=== PATIENT | male | born 1935 | race Caucasian/White ===

== ENCOUNTER 2017-02-10 17:09 | Emergency (ER) | payer MEDICARE, OTHER, MEDICAID ==
[2017-02-10] MEDS ORDERED: Albuterol/Ipratropium 3.0-0.5 MG/3 ML Neb Soln NEB ONE (17:20)
[2017-02-10] MEDS ORDERED: Lidocaine 2% Jelly 5 ML Tube TOP ONE (17:21)
--- NOTE | 2017-02-10 17:30 | EDM.PDOC ---
ED HPI GENERAL MEDICAL PROBLEM - General Stated Complaint: fall,laceration Time Seen by Provider: 02/10/17 17:18 Source of Information: Reports: Patient, Family History Limitations: Reports: No Limitations - History of Present Illness INITIAL COMMENTS - FREE TEXT/NARRATIVE: This patient is a pleasant 81 year old male that presents to the ER. Patient arrives via EMS. Patient has history of dementia. Patient lives in an apartment and his daughter who is his preparer making department lives across the [place]. The daughter reports the patient was in the bathroom and she was there. She reports she thinks he might have tripped over his oxygen tubing, but she did not see this occur. Patent reports he fell in the bathroom, but does not remember how he fell. The patient reports he remembers falling and being on the floor. Daughter called 911. The patient did not have any LOC. He denies loc, nausea, vomiting, vision changes, neck pain, back pain, cp ,soa, abd pain, urinary/bowel changes. Patient reports mild headache. The daughter reports the patient over the last 1 week has increased in his drainage and mucous with cough and to the back of the throat, so she has been giving him mucinex. The patient is conversing in full and complete sentences without difficulty. Patient does not appear to be in any acute distress. Patient is acting his normal baseline. Patient wears 2L NC at home all the time. Patent is alert, oriented to self and place. He reports it is 2000 something. Patient reports mild left shoulder pain. The daughter reports he has history of chronic shoulder pain bilaterally. Pulses +2, cap refill <2 sec, sensory and motor function intact. Neurovascular intact. Patient reports painful ROM of the left shoulder. Onset: Today Onset Date: 02/10/17 Location: Reports: Head Severity: Mild Improves with: Reports: None Worsens with: Reports: None Associated Symptoms: Reports: Cough, cough w sputum. Denies: Confusion, Chest Pain, Diaphoresis, Fever/Chills, Headaches, Loss of Appetite, Malaise, Nausea/ Vomiting, Rash, Seizure, Shortness of Breath, Syncope, Weakness - Related Data Allergies Allergy/AdvReac Type Severity Reaction Status Date / Time No Known Allergies Allergy Verified 02/10/17 17:34 Home Meds: Home Meds Arformoterol [Brovana] 1 ampule INH BID 04/01/16 [History] Aspirin 325 mg PO DAILY 04/01/16 [History] Budesonide [Pulmicort] 1 ampule INH BID 04/01/16 [History] Citalopram Hydrobromide [Celexa] 10 mg PO BEDTIME 04/01/16 [History] Diclofenac Sodium [IJD: Diclofenac Sodium] 75 mg PO DAILY 04/01/16 [History] Enalapril Maleate [Vasotec] 10 mg PO BID 04/01/16 [History] Enalapril [Vasotec] 5 mg PO BEDTIME 04/01/16 [History] Ipratropium/Albuterol Sulfate [Iprat-Albut 0.5-3(2.5) mg/3 ml] 3 ml INH QID 06/09 [History] Levothyroxine Sodium [Synthroid] 100 mcg PO ACBREAKFAST 04/01/16 [History] Metoprolol Succinate [Toprol XL] 25 mg PO DAILY 04/01/16 [History] Multivitamin [Multivitamins] 1 tab PO DAILY 04/01/16 [History] atorvaSTATin [Lipitor] 10 mg PO BEDTIME 04/01/16 [History] Albuterol [IJD: Ventolin HFA] 2 puff QID PRN 02/10/17 [History] Melatonin 5 mg PO DAILY 02/10/17 [History] Naproxen Sodium [Aleve] 220 mg PO BID 02/10/17 [History] Roflumilast [Daliresp] 1 tab PO DAILY 02/10/17 [History] Vit C/E/Zn/Coppr/Lutein/Zeaxan [Preservision Areds 2 Softgel] 1 each PO BID [History] Past Medical History Cardiovascular History: Reports: High Cholesterol, Hypertension, [place] Respiratory History: Reports: COPD Neurological History: Reports: CVA Endocrine/Metabolic History: Reports: Diabetes, Type II Social & Family History - Family History Family Medical History: Noncontributory - Tobacco Use Smoking Status *Q: Former Smoker - Recreational Drug Use Recreational Drug Use: No ED ROS GENERAL - Review of Systems Review Of Systems: See Below Constitutional: Reports: No Symptoms HEENT: Reports: No Symptoms Respiratory: Reports: No Symptoms Cardiovascular: Reports: No Symptoms Endocrine: Reports: No Symptoms GI/Abdominal: Reports: No Symptoms : Reports: No Symptoms Musculoskeletal: Reports: Joint Pain (left shoulder pain. ) Skin: Reports: Wound (laceration right above eyebrow) Neurological: Reports: Headache (mild) Psychiatric: Reports: No Symptoms Hematologic/Lymphatic: Reports: No Symptoms Immunologic: Reports: No Symptoms ED EXAM, HEAD INJURY - Physical Exam Exam: See Below Exam Limited By: No Limitations General Appearance: Alert, WD/WN, No Apparent Distress Head: Facial Lacerations (right, above right eyebrow. ). No: Scalp Lacerations , Scalp Swelling, Scalp Abrasions, Scalp Ecchymosis, Scalp Hematoma, Scalp Tenderness, Active Bleeding, Facial Abrasions, Facial Ecchymosis, Facial Tenderness, Raccoon Eyes Eyes: Bilateral Eye: EOMI, Normal Inspection, PERRL Ears: Normal External Exam, Normal Canal, Hearing Grossly Normal, Normal TMs, Other (Hearing aids removed for exam, placed back in ears. ) Nose: Normal Inspection, Normal Mucousa, No Blood Throat/Mouth: Normal Inspection, Normal Lips, Normal Gums, Normal Oropharynx, Normal Voice, No Airway Compromise Neck: Non-Tender, Full Range of Motion, Normal Alignment, Normal Inspection Respiratory: No Respiratory Distress, No Accessory Muscle Use, Chest Non-Tender , Decreased Breath Sounds, Wheezing Cardiovascular: Normal Peripheral Pulses, Regular Rate, Rhythm, No Edema, No Gallop, No JVD, No Murmur, No Rub GI/Abdominal Exam (Abbreviated): Normal Bowel Sounds, Soft, Non-Tender, No Organomegaly, No Distention, No Abnormal Bruit, No Mass, Pelvis Stable Back Exam: Normal Inspection, Full Range of Motion. No: CVA Tenderness (L), CVA Tenderness (R), Decreased Range of Motion, Muscle Spasm, Paraspinal Tenderness, Vertebral Tenderness Extremities: Normal Range of Motion, No Pedal Edema, Pain with Movement (ROM pain mild left anterior shoulder), Tenderness (left anterior shoulder mild. worse with ROM. 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 Reports it is 2000 something. ) Skin: Normal Color, Warm/Dry, Other (laceration right upper eyebrow) - [place] Coma Score Best Eye Response ([place]): (4) Open Spontaneously Best Verbal Response ([place]): (5) Oriented (x2. Baseline.) Best Motor Response ([place]): (6) Obeys Commands EKG INTERPRETATION EKG Date: 02/10/17 Time: 18:11 Rate (beats/min): 115 EKG Interpretation Comments: Sinus tach with PVCs. No ST elevations. Course - Vital Signs Last Recorded V/S: Last Vital Signs Temp 99.3 F 02/10/17 18:28 Pulse 114 H 02/10/17 18:28 Resp 20 02/10/17 18:28 BP 156/93 H 02/10/17 18:28 Pulse Ox 97 02/10/17 18:28 - Orders/Labs/Meds Orders: Active Orders 24 hr Category Date Time Status EKG Documentation Completion [RC] STAT Care 02/10/17 17:18 Active RT Aerosol Therapy [RC] ASDIRECTED Care 02/10/17 17:21 Active Vaccines to be Administered [RC] PER UNIT ROUTINE Care 02/10/17 17:54 Active Cervical Spine wo Cont [CT] Stat Exams 02/10/17 17:19 Taken Chest 1V Frontal [CR] Stat Exams 02/10/17 17:19 Taken Head wo Cont [CT] Stat Exams 02/10/17 17:19 Taken Shoulder Comp Lt [CR] Stat Exams 02/10/17 17:19 Taken Sodium Chloride 0.9% [Normal Saline] 500 ml Med 02/10/17 17:53 Active IV .BOLUS Medication Orders Sodium Chloride (Normal Saline) 500 mls @ 500 mls/hr IV .BOLUS ONE Stop: 02/10/17 18:52 Last Admin: 02/10/17 18:25 Dose: 500 mls/hr Labs: Laboratory Tests 02/10/17 02/10/17 02/10/17 Range/Units 17:20 17:25 17:25 WBC 17.6 H (5.0-10.0) 10^3/uL RBC 4.49 L (4.50-6.00) 10^6/uL Hgb 13.2 L (14.0-18.0) g/dL Hct 39.9 L (40.0-54.0) % MCV 88.9 (82.0-94.0) fL MCH 29.4 (27.0-32.0) pg MCHC 33.1 (33.0-38.0) g/dL RDW Coeff of Umm 13.7 (11.0-15.0) % Plt Count 272 (150-400) 10^3/uL Neut % (Auto) 78.5 (35-85) % Lymph % (Auto) 9.8 L (10-55) % [place] % (Auto) 9.2 (0-16) % Eos % (Auto) 2.2 (0-5) % Baso % (Auto) 0.3 (0-3) % Neut # (Auto) 13.78 H (1.80-7.00) 10^3/uL Lymph # (Auto) 1.72 (1.00-4.80) 10^3/uL [place] # (Auto) 1.62 H (0.00-0.80) 10^3/uL Eos # (Auto) 0.39 (0.00-0.45) 10^3/uL Baso # (Auto) 0.06 10^3/uL Sodium 136 (136-145) mEq/L Potassium 4.6 (3.5-5.0) mEq/L Chloride 97 L (98-106) mEq/L Carbon Dioxide 28 (21-32) mmol/L BUN 22 H (7-18) mg/dL Creatinine 1.5 H (0.7-1.3) mg/dL Est Cr Clr Drug Dosing 34.89 mL/min Estimated GFR (MDRD) 45 L (>=60) mL/min Glucose 337 H* D (75-99) mg/dL Calcium 9.7 (8.4-10.1) mg/dL Total Bilirubin 0.6 (0.0-1.0) mg/dL AST 14 L (15-37) U/L ALT 24 (12-78) U/L Alkaline Phosphatase 114 (46-116) U/L Troponin I 0.047 (0.00-0.06) ng/mL Total Protein 7.5 (6.4-8.2) g/dL Albumin 3.5 (3.4-5.0) g/dL Urine Color Yellow (YELLOW) Urine Appearance Clear (CLEAR) Urine pH 7.0 (4.5-8.0) Ur Specific Declo 1.019 (1.003-1.020) Urine Protein 30 H (NEGATIVE) mg/dL Urine Glucose (UA) >=1000 H (NEGATIVE) mg/dL Urine Ketones Negative (NEGATIVE) mg/dL Urine Occult Blood Negative (NEGATIVE) Urine Nitrite Negative (NEGATIVE) Urine Bilirubin Negative (NEGATIVE) Urine Urobilinogen 0.2 (0.2-1.0) EU/dL Ur Leukocyte Esterase Negative (NEGATIVE) Urine RBC Not seen (0-5) /HPF Urine WBC Not seen (0-5) /HPF Ur Epithelial Cells Few H (NOT SEEN) /HPF Hyaline Casts Occasional H (NOT SEEN) /LPF Urine Mucus Few H (NOT SEEN) /HPF Meds: Medications Generic Name Dose Route Start Last Admin Trade Name Freq PRN Reason Stop Dose Admin Sodium Chloride 500 mls @ 500 mls/hr 02/10/17 17:53 02/10/17 18:25 Normal Saline IV 02/10/17 18:52 500 mls/hr .BOLUS ONE Administration Discontinued Medications Generic Name Dose Route Start Last Admin Trade Name Freq PRN Reason Stop Dose Admin Albuterol/Ipratropium 3 ml 02/10/17 17:20 02/10/17 17:30 Duoneb 3.0-0.5 Mg/3 Ml NEB 02/10/17 17:21 3 ml ONETIME ONE Administration Diphtheria/Tetanus/Acell Pertussis 0.5 ml 02/10/17 17:54 02/10/17 18:04 Adacel IM 02/10/17 17:55 0.5 ml .ONCE ONE Administration Lidocaine HCl 5 ml 02/10/17 17:21 02/10/17 17:31 Xylocaine 2% Jelly TOP 02/10/17 17:22 1 applic ONETIME ONE Administration Lidocaine/Epinephrine 20 ml 02/10/17 17:45 02/10/17 18:02 Xylocaine 1% With Epinephrine 1:100,000 INJECT 02/10/17 17:46 20 ml ONETIME ONE Administration - Radiology Interpretation Free Text/Narrative:: CXR; No infiltrates, no cardiolomegaly, no edema. Left Shoulder: no fx, no dislocation, no soft tissue swelling. Head CT: No acute findings. Discussed with radiologist. CT Results Date: 02/10/17 - Re-Assessments/Exams Free Text/Narrative Re-Assessment/Exam: 02/10/17 17:56 WBC is 17, this is consistent with his baseline. CBC unremarkable. CMP, does show some mild renal insufficiency, will hydrate with NS bolus. Patient BS is greater than 300, has hx of hyperglycemia in the 300s before. No acute changes seen. Unremarkable labs. Will await radiology tests. Departure - Departure Time of Disposition: 18:45 Disposition: Home, Self-Care 01 Condition: good Clinical Impression: Contusion, Laceration, Renal insufficiency Fall Qualifiers: Encounter type: initial encounter Qualified Code(s): W19.XXXA - Unspecified fall, initial encounter - Discharge Information Instructions: Laceration Care, Adult, [id number] Additional Instructions: Followup with your primary care provider Return to the ER for worsening of condition or any emergent concerns Increase fluids Remove stitches with primary care provider in 5-7 days Wash the sutures gently with soap and water twice a day, rinse, pat dry. Keep clean and dry. - My Orders Last 24 Hours: My Active Orders 02/10/17 17:18 EKG Documentation Completion [RC] STAT 02/10/17 17:19 Cervical Spine wo Cont [CT] Stat Chest 1V Frontal [CR] Stat Head wo Cont [CT] Stat Shoulder Comp Lt [CR] Stat 02/10/17 17:21 RT Aerosol Therapy [RC] ASDIRECTED 02/10/17 17:53 Sodium Chloride 0.9% [Normal Saline] 500 ml IV .BOLUS 02/10/17 17:54 Vaccines to be Administered [RC] PER UNIT ROUTINE - Assessment/Plan Last 24 Hours: My Active Orders 02/10/17 17:18 EKG Documentation Completion [RC] STAT 02/10/17 17:19 Cervical Spine wo Cont [CT] Stat Chest 1V Frontal [CR] Stat Head wo Cont [CT] Stat Shoulder Comp Lt [CR] Stat 02/10/17 17:21 RT Aerosol Therapy [RC] ASDIRECTED 02/10/17 17:53 Sodium Chloride 0.9% [Normal Saline] 500 ml IV .BOLUS 02/10/17 17:54 Vaccines to be Administered [RC] PER UNIT ROUTINE Plan: PLEASE SEE RN NOTE FOR PFSH.
[2017-02-10] MEDS ORDERED: Lidocaine 1% with EPINEPHrine 1:100,000 20 ML MDV INJECT ONE (17:45)
[2017-02-10] MEDS ORDERED: Sodium Chloride 0.9% 500 ML IV ONE (17:53)
[2017-02-10] MEDS ORDERED: Diphtheria,Pertussis(Acell),Tetanus Vaccine 0.5 ML Syringe IM ONE (17:54)
[2017-02-10 18:30] VITALS: BP 156/93
== END 2017-02-10 18:40 | disposition home or self-care (01) ==
LOC: CC.ED 17:09
DX: S01.111A Laceration without foreign body of right eyelid and periocular area, initial encounter (principal); N28.9 Disorder of kidney and ureter, unspecified; I10 Essential (primary) hypertension; E78.00 Pure hypercholesterolemia, unspecified; I25.2 Old myocardial infarction; E11.9 Type 2 diabetes mellitus without complications; J44.9 Chronic obstructive pulmonary disease, unspecified; Z86.73 Personal history of transient ischemic attack (TIA), and cerebral infarction without residual deficits; Z87.891 Personal history of nicotine dependence; W19.XXXA Unspecified fall, initial encounter; Z79.82 Long term (current) use of aspirin; Z79.899 Other long term (current) drug therapy
CPT/HCPCS: 12011; 36415; 70450; 71010; 72125; 73030; 80053; 81001; 84484; 85025; 90471; 90715; 93005; 93010; 96360; 99285; J7030; 96365